=== PATIENT | male | born 1960 | race Caucasian/White ===

== ENCOUNTER 2017-07-26 17:37 | Emergency (ER) | payer BC ==
[~2017-07-26] VITALS: Ht 170.2 cm; Wt 68.0 kg
[~2017-07-26 17:37] MED LIST: AMLO10; ASPI81CH; Advil200 M1; Fosinopril Sodi20 MG; HYDCHL12.5
[2017-07-26] MEDS ORDERED: Norco 5-325 Ta1 EACH PO (20:15)
== END 2017-07-26 20:28 | disposition home or self-care (01) ==
LOC: ER 17:37
DX: S61.211A Laceration without foreign body of left index finger without damage to nail, initial encounter (principal); W31.89XA Contact with other specified machinery, initial encounter; Z79.899 Other long term (current) drug therapy; Z79.82 Long term (current) use of aspirin; Z87.891 Personal history of nicotine dependence
CPT/HCPCS: 73130; 90714